=== PATIENT | female | born 1960 | race Caucasian/White ===

== ENCOUNTER 2017-08-24 10:44 | Emergency (ER) | payer OTHER ==
[~2017-08-24] VITALS: Ht 154.9 cm; Wt 54.4 kg
[2017-08-24 10:46] VITALS: Ht 154.9 cm; Wt 54.4 kg
[2017-08-24 12:30] VITALS: BP 160/62
== END 2017-08-24 13:00 | disposition home or self-care (01) ==
LOC: ED 10:44
DX: R06.02 Shortness of breath (principal); R06.2 Wheezing; R05 Cough
CPT/HCPCS: J7512; J7613; J7644

== ENCOUNTER 2018-09-25 15:25 | Emergency (ER) | payer OTHER ==
[~2018-09-25] VITALS: Ht 149.9 cm; Wt 84.8 kg
[2018-09-25 15:52] VITALS: Ht 149.9 cm; Wt 84.8 kg
[2018-09-25 16:55] VITALS: BP 150/87
== END 2018-09-25 16:55 | disposition home or self-care (01) ==
LOC: ED 15:25
DX: J98.01 Acute bronchospasm (principal)